=== PATIENT | male | born 1960 | race Hispanic/Latino ===

== ENCOUNTER 2018-11-22 08:37 | Emergency (ER) | payer MEDICARE ==
[2018-11-22 08:40] VITALS: BP 170/103
[2018-11-22] MEDS ORDERED: TORADOL IM ONE (10:06)
[2018-11-22] MEDS ORDERED: ZOFRAN ODT PO ONE (10:06)
[2018-11-22] MEDS ORDERED: SOLU-Medrol IM ONE (10:06)
[2018-11-22] MEDS ORDERED: TYLENOL #3 PO ONE (10:07)
--- NOTE | 2018-11-22 10:11 | Emergency Department Report ---
ED General Adult HPI - General Chief complaint: Back Pain/Injury Stated complaint: LEGS/FEET PAIN Time Seen by Provider: 11/22/18 09:00 Source: patient Mode of arrival: Ambulatory Limitations: No Limitations - History of Present Illness Initial comments: Patient presents to the emergency department with a chief complaint of worsening back pain over the last week. Patient states she has a history of back pain from intrauterine half ago. Patient states his pain radiates from his lower back into his legs bilaterally and describes the pain as a "like an nature. Patient denies any issues with his bladder or bowel. -: Gradual Location: back Radiation: extremity Severity scale (0 -10): 7 Quality: burning, sharp, constant, other Consistency: constant Improves with: rest Worsens with: movement Associated Symptoms: denies other symptoms Treatments Prior to Arrival: none - Related Data Home Medications Medication Instructions Recorded Confirmed Last Taken Paxil 0 12/12/15 Unknown RisperDAL 0 12/12/15 Unknown Xanax TAB 0 12/12/15 Unknown ZyPREXA 0 12/12/15 Unknown Previous Rx's Medication Instructions Recorded Last Taken Type Acetaminophen/Codeine [Tylenol 1 tab PO Q6H PRN #15 tab 11/22/18 Unknown Rx /Codeine # 3 tab] Naproxen [Naprosyn] 500 mg PO BID PRN #20 tablet 11/22/18 Unknown Rx predniSONE [Deltasone] 20 mg PO DAILY #15 tablet 11/22/18 Unknown Rx Allergies Allergy/AdvReac Type Severity Reaction Status Date / Time No Known Allergies Allergy Verified 11/22/18 08:38 ED Review of Systems ROS: Stated complaint: LEGS/FEET PAIN Other details as noted in HPI Comment: All other systems reviewed and negative Constitutional: denies: chills, fever Eyes: denies: eye pain, eye discharge, vision change ENT: denies: ear pain, throat pain Respiratory: denies: cough, shortness of breath, wheezing Cardiovascular: denies: chest pain, palpitations Endocrine: no symptoms reported Gastrointestinal: denies: abdominal pain, nausea, diarrhea Genitourinary: denies: urgency, dysuria Musculoskeletal: denies: back pain, joint swelling, arthralgia Skin: denies: rash, lesions Neurological: denies: headache, weakness, paresthesias Psychiatric: denies: anxiety, depression Hematological/Lymphatic: denies: easy bleeding, easy bruising ED Past Medical Hx - Past Medical History Hx Psychiatric Treatment: Yes (DEPRESSION/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 high cholesterol - Surgical History Additional Surgical History: neck surgery - Social History Smoking Status: Current Every Day Smoker Substance Use Type: None - Medications Home Medications: Home Medications Medication Instructions Recorded Confirmed Last Taken Type Paxil 0 12/12/15 Unknown History RisperDAL 0 12/12/15 Unknown History Xanax TAB 0 12/12/15 Unknown History ZyPREXA 0 12/12/15 Unknown History Acetaminophen/Codeine [Tylenol 1 tab PO Q6H PRN #15 tab 11/22/18 Unknown Rx /Codeine # 3 tab] Naproxen [Naprosyn] 500 mg PO BID PRN #20 tablet 11/22/18 Unknown Rx predniSONE [Deltasone] 20 mg PO DAILY #15 tablet 11/22/18 Unknown Rx ED Physical Exam - General Limitations: No Limitations General appearance: alert, in no apparent distress - Head Head exam: Present: atraumatic, normocephalic - Eye Eye exam: Present: normal appearance, PERRL, EOMI - ENT ENT exam: Present: mucous membranes moist - Neck Neck exam: Present: normal inspection - Respiratory Respiratory exam: Present: normal lung sounds bilaterally. Absent: respiratory distress - Cardiovascular Cardiovascular Exam: Present: regular rate, normal rhythm. Absent: systolic murmur, diastolic murmur, rubs, gallop - Rectal Rectal exam: Present: deferred - Extremities Exam Extremities exam: Present: normal inspection - Back Exam Back exam: Present: normal inspection - Neurological Exam Neurological exam: Present: alert, oriented X3, CN II-XII intact, reflexes normal. Absent: motor sensory deficit - Psychiatric Psychiatric exam: Present: normal affect, normal mood - Skin Skin exam: Present: warm, dry, intact, normal color. Absent: rash ED Course Vital Signs 11/22/18 08:38 Temperature 98.1 F Pulse Rate 101 H Respiratory 22 Rate Blood Pressure 170/103 O2 Sat by Pulse 97 Oximetry ED Medical Decision Making - Medical Decision Making discussed plan of care with patient Critical care attestation.: If time is entered above; I have spent that time in minutes in the direct care of this critically ill patient, excluding procedure time. ED Disposition Clinical Impression: Back pain, Lumbar radiculopathy Disposition: DC- TO HOME OR SELFCARE Is pt being admited?: No Does the pt Need Aspirin: No Condition: Stable Instructions: Lumbar Radiculopathy (ED), Back Pain (ED) Additional Instructions: return if worse Prescriptions: predniSONE [Deltasone] 20 mg PO DAILY #15 tablet Naproxen [Naprosyn] 500 mg PO BID PRN #20 tablet PRN Reason: pain Acetaminophen/Codeine [Tylenol /Codeine # 3 tab] 1 tab PO Q6H PRN #15 tab PRN Reason: pain Referrals: JORGE MENDOZA MD [Primary Care Provider] - 3-5 Days [facility] [Provider Group] - 3-5 Days [facility] [Provider Group] - 3-5 Days Time of Disposition: 10:10
== END 2018-11-22 10:38 | disposition home or self-care (01) ==
LOC: ED 08:37
DX: M54.16 Radiculopathy, lumbar region (principal); F31.9 Bipolar disorder, unspecified; E78.00 Pure hypercholesterolemia, unspecified; F17.200 Nicotine dependence, unspecified, uncomplicated; Z79.899 Other long term (current) drug therapy
CPT/HCPCS: 96372; 99282; J1885; J2930